=== PATIENT | male | born 1975 | race African-American/Black ===

== ENCOUNTER 2017-11-24 02:49 | Emergency (ER) | payer BC ==
[~2017-11-24] VITALS: Ht 162.6 cm; Wt 68.0 kg
[~2017-11-24 02:49] MED LIST: NOHOMEMEDICATIONS; PREDNISONE 20 M20 M1 PO; TRAMADOL 50 MG50 MG PO
[2017-11-24 05:00] VITALS: BP 164/115
== END 2017-11-24 04:51 | disposition home or self-care (01) ==
LOC: M.ERS 02:49
DX: S61.211A Laceration without foreign body of left index finger without damage to nail, initial encounter (principal); W26.9XXA Contact with unspecified sharp object(s), initial encounter; Y93.89 Activity, other specified; Y99.8 Other external cause status; Y92.009 Unspecified place in unspecified non-institutional (private) residence as the place of occurrence of the external cause